=== PATIENT | female | born 1995 | race Caucasian/White ===

== ENCOUNTER 2022-08-08 09:05 | Inpatient (IN) | payer MEDICAID ==
[~2022-08-08] VITALS: Ht 157.5 cm; Wt 72.6 kg
[2022-08-08] MEDS ORDERED: METHYLERGONOVINE 0.2 MG/ML AMP IM PRN ×2 (09:20→16:30)
[2022-08-08] MEDS ORDERED: CARBOPROST 250 MCG/ML AMP IM PRN (09:20)
[2022-08-08] MEDS ORDERED: AMPICILLIN 2,000 MG in NACL 0.9% MINI-BAG PLUS 100 ML IV SCH (09:20)
[2022-08-08] MEDS ORDERED: OXYTOCIN 20 UNITS in LACTATED RINGERS 1,000 ML IV SCH (09:25)
[2022-08-08] MEDS ORDERED: ROPIVACAINE 0.2%/NS PREMIX 200 ML EPI ONE (09:53)
[2022-08-08] MEDS ORDERED: AMPICILLIN 2,000 MG VIAL ONE (09:58)
[2022-08-08] MEDS ORDERED: OXYTOCIN 20 UNITS/LR PREMIX 1,000 ML IV ONE (09:59)
[2022-08-08 10:08] LABS: BASOPHILS % (AUTO) 0.2 % (0.0-2.0); EOSINOPHILS % (AUTO) 0.1 % (0.0-4.0); HEMOGLOBIN 12.6 g/dL (12.0-16.0); LYMPHOCYTES # (AUTO) 2.3 K/uL (2.5-16.5); LYMPHOCYTES % (AUTO) 12.8 % (20.5-51.1); MEAN CORPUSCULAR HEMOGLOBIN 32 pg (27-31); MEAN CORPUSCULAR HGB CONC 34 g/dL (33-37); MEAN CORPUSCULAR VOLUME 94.9 fL (80-94); MONOCYTES # (AUTO) 0.9 K/uL (0.8-1.0); MONOCYTES % (AUTO) 5.1 % (1.7-9.3); NEUTROPHILS # (AUTO) 14.9 K/uL (1.8-7.7); NEUTROPHILS % (AUTO) 81.8 % (42.2-75.2); PLATELET COUNT (AUTO) 168 K/uL (140-450); RED BLOOD CELL COUNT(AUTO) 3.89 MIL/uL (4.20-5.40); RED CELL DISTRIBUTION WIDTH 13.4 % (11.6-13.7); WHITE BLOOD COUNT (AUTO) 18.3 K/uL (4.8-10.8)
[2022-08-08 10:41] LABS: LEUKOCYTE ESTERASE ,URINE 3+ (NEGATIVE); NITRITE, URINE NEGATIVE (NEGATIVE)
[2022-08-08 10:42] LABS: APPEARANCE,URINE SLIGHTLY CLOUDY (CLEAR); BLOOD, URINE 3+ (NEGATIVE); COLOR,URINE BLOODY (YELLOW); PH,URINE 8.5 (5.0-9.0)
[2022-08-08 10:43] LABS: BILIRUBIN,URINE NEGATIVE (NEGATIVE); UGLUCOSE NEGATIVE (NEGATIVE)
[2022-08-08 10:45] LABS: RBC,URINE 20-50 /HPF (0-5)
[2022-08-08] MEDS: LACTATED RINGERS 1,000 ML IV SCH ×3 (11:00→12:49)
[2022-08-08] MEDS ORDERED: TERBUTALINE 1 MG/ML VIAL SUBQ SCH (12:40)
[2022-08-08] MEDS ORDERED: TERBUTALINE 1 MG/ML VIAL SUBQ ONE (12:40)
[2022-08-08] MEDS ORDERED: AMPICILLIN 1,000 MG VIAL ONE (14:01)
--- NOTE | 2022-08-08 16:02 | NUR ---
PATIENT HAS BEEN SCREENED AND CATEGORIZED LOW NUTRITION RISK. PATIENT WILL BE SEEN WITHIN 7 DAYS OF ADMISSION. 08/15/[address]
[2022-08-08] MEDS ORDERED: METHYLERGONOVINE 0.2 MG TAB PO PRN (16:30)
[2022-08-08] MEDS ORDERED: OXYTOCIN 10 UNITS/ML VIAL IM PRN (16:30)
[2022-08-08] MEDS ORDERED: BENZOCAINE/MENTHOL 20%-0.5% 60 GM CAN TP PRN (16:30)
[2022-08-08] MEDS ORDERED: oxyCODONE/APAP 5/325 MG 1 TAB TAB PO PRN (16:30)
[2022-08-08] MEDS ORDERED: TEMAZEPAM 15 MG CAP PO PRN (16:30)
--- NOTE | 2022-08-08 16:49 | NUR ---
CALLED TO BEDMISSION BERNAL CAMPUSE BY RN FOR VAGINAL DELIVERY WITH LATE DECELS. BABY DELIVERED AT 1623. CLEANED AND STIMULATED. SCORES WERE 7 AND 9. NO INTERVENTION REQUIRED.
[2022-08-08] MEDS: IBUPROFEN 800 MG TAB PO PRN (17:02)
[2022-08-08] MEDS ORDERED: AMPICILLIN 1,000 MG in NACL 0.9% 50 ML IV SCH (18:00)
[2022-08-08] MEDS: oxyCODONE/APAP 5/325 MG 1 TAB TAB PO PRN ×2 (20:01→21:00)
[2022-08-08] MEDS ORDERED: DOCUSATE SOD/SENNA 50/8.6 MG 1 TAB PO SCH (21:00)
[2022-08-09] MEDS: IBUPROFEN 800 MG TAB PO PRN ×2 (04:04→17:14)
[2022-08-09 05:32] LABS: HEMATOCRIT 35.6 % (36-48)
== END 2022-08-10 19:56 | disposition home or self-care (01) | DRG 560 ==
LOC: MLD 09:05 → MFCC 21:25
PROVIDERS: ADMIT Obstetrics & Gynecology; ATTEND Obstetrics & Gynecology
PROC: 10D07Z6 Extraction of Products of Conception, Vacuum, Via Natural or Artificial Opening (ICD-10-PCS; principal; 2022-08-08)
DX: O76 Abnormality in fetal heart rate and rhythm complicating labor and delivery (principal); Z37.0 Single live birth; O69.1XX0 Labor and delivery complicated by cord around neck, with compression, not applicable or unspecified; Z20.822 Contact with and (suspected) exposure to COVID-19; Z3A.39 39 weeks gestation of pregnancy
CPT/HCPCS: 36415; 51702; 81001; 85018; 85025; 86592; 86762; 86886; 86900; 86901; 87086; 87340; 90715; J0290; J2590; J2795; J3105